=== PATIENT | female | born 1985 | race Caucasian/White ===

== ENCOUNTER → 2018-03-10 | Outpatient (CLI) | payer OTHER ==
[~2018-03-10] MED LIST: FERR1TAB23; PRENTAB26 PO
== END | disposition home or self-care (01) ==
LOC: C.LABSPEC 11:15
PROVIDERS: ATTEND Obstetrics & Gynecology
DX: Z34.81 Encounter for supervision of other normal pregnancy, first trimester (principal); Z3A.00 Weeks of gestation of pregnancy not specified

== ENCOUNTER → 2018-03-17 | Outpatient (CLI) | payer OTHER ==
[2018-03-17 12:23] LABS: BASO % 0.3 %; BASO ABS # 0.03 K/uL (0-0.2); EOS % 2.5 %; EOS ABS # 0.23 K/uL (0-0.5); HEMATOCRIT 37.7 % (37-47); HEMOGLOBIN 12.4 g/dL (12.0-16.0); IG# 0.02 K/uL (0.00-0.02); LYMPH % 28.1 %; LYMPH ABS # 2.57 K/uL (1.2-3.4); MEAN CELL VOLUME 79.4 fL (80-100); MEAN CORPUSCULAR HEMOGLOBIN 26.1 pg (25-34); MEAN CORPUSCULAR HGB CONC 32.9 g/dl (32-36); MEAN PLATELET VOLUME 9.4 fL (7.4-10.4); MONO % 9.1 %; MONO ABS # 0.83 K/uL (0.11-0.59); NEUT % 59.8 %; NEUT ABS # 5.47 K/uL (1.4-6.5); PLATELET COUNT 266 K/uL (130-400); RED CELL DISTRIBUTION WIDTH CV 13.5 % (11.5-14.5); RED CELL DISTRIBUTION WIDTH SD 38.7 fL (36.4-46.3); WHITE BLOOD COUNT 9.15 K/uL (4.8-10.8)
== END | disposition home or self-care (01) ==
LOC: C.LAB1850 10:30
PROVIDERS: ATTEND Obstetrics & Gynecology
DX: Z34.81 Encounter for supervision of other normal pregnancy, first trimester (principal); Z3A.00 Weeks of gestation of pregnancy not specified

== ENCOUNTER 2019-06-16 17:01 | Observation (INO) ==
[2019-06-16 17:40] LABS: Basophils # (auto) 0.02 K/uL (0-0.2); Basophils % (auto) 0.2 %; Eosinophils # (auto) 0.16 K/uL (0-0.5); Eosinophils % (auto) 1.5 %; Hematocrit (blood only) 38.7 % (37-47); Hemoglobin 12.7 g/dL (12.0-16.0); Immature Granulocytes # (auto) 0.01 K/uL (0.00-0.02); Immature Granulocytes % (auto) 0.1 %; Lymphocytes # (auto) 2.36 K/uL (1.2-3.4); Lymphocytes % (auto) 21.9 %; Mean Corpuscular Hgb Conc 32.8 g/dL (32-36); Mean Platelet Volume 9.7 fL (7.4-10.4); Monocytes # (auto) 0.63 K/uL (0.11-0.59); Monocytes % (auto) 5.8 %; Neutrophils # (auto) 7.59 K/uL (1.4-6.5); Neutrophils % (auto) 70.5 %; Platelet Count 252 K/uL (130-400); RDW Coefficient of Variation 12.8 % (11.5-14.5); RDW Standard Deviation 37.9 fL (36.4-46.3); Red Blood Count 4.78 M/uL (4.2-5.4); White Blood Count 10.77 K/uL (4.8-10.8)
[2019-06-16] MEDS ORDERED: ONDANSETRON INJ 2 MG/ML 2 ML VIAL IV STA (17:45)
[2019-06-16] MEDS ORDERED: KETOROLAC TROMETHAMINE 15 MG/ML VIAL IV ONE (17:45)
[2019-06-16] MEDS ORDERED: LACTATED RINGER'S 1,000 ML IV ONE (17:50)
[2019-06-16 17:52] LABS: Appearance Urine Clear (Clear); Bilirubin Urine Negative (Negative); Blood Urine Negative (Negative); Color Urine Yellow; Glucose Urine UA Negative (Negative); Ketones Urine Negative (Negative); Leukocyte Esterase Urine Negative (Negative); Nitrite Urine Negative (Negative); Protein Urine Negative (Negative); Specific Gravity Urine 1.013 (1.000-1.030); Urobilinogen Urine Negative (Negative)
[2019-06-16 17:55] LABS: Albumin Level 3.8 gm/dl (3.4-5.0); BUN Creatinine Ratio 12.9 (10-20); Calcium 9.2 mg/dl (8.5-10.1); Creatinine Clr Calc Pharmacy 84.2 ml/min; Est GFR (African American) 102.9; Est GFR (Non-African American) 88.8; Potassium 3.6 mmol/L (3.5-5.1)
[2019-06-16 17:58] LABS: Bilirubin,Total 0.2 mg/dl (0.2-1); Globulin 3.9 gm/dl (2.5-4.0); Total Protein 7.7 gm/dl (6.4-8.2)
--- NOTE | 2019-06-16 18:38 | Ultrasound Report ---
ABDOMINAL ULTRASOUND, RIGHT UPPER QUADRANT HISTORY: severe RUQ pain worsened w/ meals. COMPARISON: None. FINDINGS: Pancreas: The pancreas demonstrates a normal echotexture. Liver: Unremarkable. Gallbladder: A few gallstones including a 1.7 cm nonmobile stone at the neck. This is concerning for an impacted gallstone. The gallbladder wall is thickened and edematous measuring up to 6 mm. There ma y be trace pericholecystic fluid. CBD: 2 mm. Right kidney: No hydronephrosis. IMPRESSION: Cholelithiasis with gallbladder wall thickening/edema and trace pericholecystic fluid. There appears to be a 1.7 cm gallstone impacted at the neck of the gallbladder. Therefore, these findings are consi stent with acute cholecystitis. Electronically signed by: Jeff Vazquez M.D. 06/16/2019 6:36 PM
--- NOTE | 2019-06-16 19:03 | Emergency Department Note ---
ED Visit Note I contributed to the care of this patient under the supervision of . Resident Activity Tracking Resident Involvement: Resident Care Provided Care Provided: Adult ED
[2019-06-16] MEDS ORDERED: BUPIVACAINE/EPINEPHRINE 0.5% MPF 1:200,000 30 ML VIAL ONE (19:11)
--- NOTE | 2019-06-16 19:16 | History & Physical Report ---
Date of Service June 16, 2019 Assessment & Plan (1) Acute cholecystitis due to biliary calculus: US shows stone in neck with pericholecystic fluid c/w acute cholecystitis discussed options. discussed risk of surgery ( bleeding/infection/dvt/pe/mi/cva/bile leaks/injury to other organs etc...) questions answered will proceed with lap cintia tonight History of Present Illness Primary Care Provider: Elissa Luis pt with intermittent RUQ pain and nausea attacks since January. becoming more frequent. has had severe pain since 2 am. Allergies Allergy/AdvReac Type Severity Reaction Status Date / Time No Known Drug Allergies Allergy Unknown . 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 Required: No Beliefs That Will Affect Care: None marital status: Current Living Situation: Spouse Feels Safe at Home: Yes Smoking Status: Never smoker Hx Alcohol Use: No Hx Substance Use: No Review of Systems All systems reviewed & are unremarkable except as noted in HPI & below Physical Exam Constitutional: WD/WN, vitals as above no acute distress and not ill appearing Eyes: PERRL, conjunctivae normal, anicteric sclerae EOM intact bilaterally ENMT: external ear and nose normal, oropharynx normal Ears: no hearing impairment Neck: trachea midline, no thyromegaly Respiratory: normal respiratory effort; no respiratory distress and does not use accessory muscles Cardiovascular: Rate/Rhythm: regular rate and regular rhythm Gastrointestinal (Abdomen): soft. +RUQ ttp. + guarding Skin: no rashes, warm and dry Psychiatric: Orientation: alert, oriented x 3 and cooperative Results & Data Vital Signs (Past 12 Hours) Vital Signs Temp Pulse Pulse Resp BP BP Pulse Ox 06/16/19 19:11 62 18 116/79 100 06/16/19 18:02 99 06/16/19 17:05 36.7 C 76 20 143/94 H 100
--- NOTE | 2019-06-16 19:56 | Anesthesiology Consultation ---
Date of Service June 16, 2019 Assessment & Plan Chart Review Chart Review: Acceptable Risk for Surgery Consults Requested none History Surgery Operation Date: 06/16/19 19:30 Proposed Procedures p Laparoscopic Cholecystectomy - Dick Everett DO Height/Weight Height: 5 ft 2 in Weight: 68.2 kg Allergies Allergy/AdvReac Type Severity Reaction Status Date / Time No Known Drug Allergies Allergy Unknown . 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 Palpitations DURING ; wore holter monitor and wnl Anxiety Depression Migraines Past Family History Family History Other No history of previous surgery No known health problems Past Surgical History Surgical History H/O dilation and curettage 2014 History of colposcopy Social History Smoking Status: Never smoker Hx Alcohol Use: No Hx Substance Use: No Physical Exam Vital Signs Last Vital Signs Temp 36.7 C 06/16/19 17:05 Pulse 62 06/16/19 19:11 Resp 18 06/16/19 19:11 BP 116/79 06/16/19 19:11 Pulse Ox 100 06/16/19 19:11 Testing Laboratory Results 06/16/19 17:25 06/16/19 17:25 Urine Color Yellow 06/16/19 17:25 Urine Appearance Clear (Clear) 06/16/19 17:25 Urine pH 8.0 (4.5-7.5) H 06/16/19 17:25 Ur Specific [place] 1.013 (1.000-1.030) 06/16/19 17:25 Urine Protein Negative (Negative) 06/16/19 17:25 Urine Glucose (UA) Negative (Negative) 06/16/19 17:25 Urine Ketones Negative (Negative) 06/16/19 17:25 Urine Nitrite Negative (Negative) 06/16/19 17:25 Ur Leukocyte Esterase Negative (Negative) 06/16/19 17:25 06/16/19 17:25 POC Ur Test NEG
[2019-06-16] MEDS ORDERED: METOCLOPRAMIDE HCL INJ 5 MG/ML 2 ML VIAL IV PRN (19:58)
[2019-06-16] MEDS ORDERED: HYDROmorphone INJ 2 MG/ML SYR/VIAL IV PRN (19:58)
[2019-06-16] MEDS ORDERED: PROMETHAZINE HCL 12.5 MG in SODIUM CHLORIDE 0.9% 50 ML IV PRN (19:58)
[2019-06-16] MEDS ORDERED: ePHEDrine sulfate 50 MG/ML AMP IV PRN (19:58)
[2019-06-16] MEDS ORDERED: ATROPINE SULFATE 0.1 MG/ML 10ML SYR IV PRN (19:58)
[2019-06-16] MEDS ORDERED: ONDANSETRON INJ 2 MG/ML 2 ML VIAL IV PRN ×2 (19:58→22:24)
[2019-06-16] MEDS ORDERED: fentaNYL citrate 100 MCG/2 ML VIAL IV PRN (19:58)
[2019-06-16] MEDS ORDERED: DEXAMETHASONE SOD INJ 4 MG/ML VIAL IV PRN (19:58)
--- NOTE | 2019-06-16 20:12 | Emergency Department Note ---
Entered by Loli Grace acting as a scribe for History of Present Illness General Chief complaint: Abdominal Pain Stated complaint: SEVERE STOMACH PAIN Time Seen by Provider: 06/16/19 17:09 Source: patient History of Present Illness Onset (ago): month(s) 5 Location: abdomen Radiation: back Pain Consistency: + other (worsening) Maximum Pain Intensity: 7 Current Pain Intensity: 9 Exacerbated By: + eating Associated symptoms: + denies other symptoms (hematemesis, black vomit, hematochezia, melena), + diaphoresis, + fever/chills (Positive chills. Negative fever.), + nausea/vomiting and + other (diarrhea); no chest pain and no shortness of breath The patient is a 33 year old female who presents to the Emergency Room with complaints of worsening abdominal pains starting 5 months ago. The patient states that for the past few months it has been intermittent and is all over her abdomen. She reports that it usually lasts a few minutes to a few hours. She notes that it tends to be worse with food, specifically fatty, greasy, or spicy food. She states that recently the episodes have been increasing in intensity, frequency, and duration. She reports that she saw her PCP yesterday for it and they ordered blood work, which she hasnt gotten the results for yet. She states that she decided to come to the ED tonight as her pain was the worst it has ever been and she couldnt take it. She reports that it was a 9/10 in severity and was close to child . She reports that it felt like the pain radiated to her back. The patient complains of nausea, vomiting, diarrhea, diaphoresis, and chills stating last night. The patient notes her vomit is yellow. The patient denies hematemesis, black vomit, hematochezia, melena, fever, chest pain, and shortness of breath. Home Medications Home Medications Medication Instructions Recorded Confirmed Type [id number] fumarate-FA 1 tab PO QAM 06/16/19 06/16/19 History [] sertraline 50 mg PO QAM 06/16/19 06/16/19 History Allergies Allergy/AdvReac Type Severity Reaction Status Date / Time No Known Drug Allergies Allergy Unknown . 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 Palpitations DURING ; wore holter monitor and wnl Anxiety Depression Migraines Surgical History H/O dilation and curettage 2014 History of colposcopy Family History Other No history of previous surgery No known health problems Social History Preferred Language: Belarusian Communication Ability: Effective E Commerce Developer Required: No Beliefs That Will Affect Care: None marital status: Current Living Situation: Spouse current occupational status: employed Feels Safe at Home: Yes Smoking Status: Never smoker Hx Alcohol Use: No Hx Substance Use: No Review of Systems See HPI for pertinent positives & negatives. and A total of 10 systems reviewed and were otherwise negative Physical Exam Vital Signs Vital Signs - 24 hr 06/16/19 17:05 06/16/19 18:02 06/16/19 19:11 Temperature 36.7 C Temperature Source Oral Sepsis Recent Fever Within 48 Hours No Sepsis Action Taken by Nursing No Action Required Pulse Rate 76 Pulse Rate [Finger] 62 Respiratory Rate 20 18 Respiratory Effort / Characteristics Non-Labored Spontaneous Respiratory Depth Normal Respiratory Pattern Regular Blood Pressure 143/94 H Blood Pressure [Right Arm] 116/79 Blood Pressure Mean 110 Blood Pressure Mean [Right Arm] 91 Pulse Oximetry 100 99 100 Oxygen Delivery Method Room Air Room Air Room Air 06/16/19 19:23 Temperature Temperature Source Sepsis Recent Fever Within 48 Hours Sepsis Action Taken by Nursing Pulse Rate Pulse Rate [Finger] Respiratory Rate Respiratory Effort / Characteristics Respiratory Depth Respiratory Pattern Blood Pressure Blood Pressure [Right Arm] Blood Pressure Mean Blood Pressure Mean [Right Arm] Pulse Oximetry Oxygen Delivery Method Room Air General: Uncomfortable appearing young female complaining of abdominal pain. HEENT: Normal cephalic atraumatic. Pupils are equal round and reactive to light. Extraocular movements are intact. Oropharynx is pink with moist mucous membranes. No swelling of the mouth lips or tongue. Neck: Supple with a midline trachea. No meningeal signs or stiffness, no JVD or bruits. No Stridor. Chest: Clear to auscultation bilaterally. No wheezes or rhonchi. No increased work of breathing. Heart: regular rate and rhythm. Abdomen: Soft, moderate tenderness in right upper abdomen, nondistended without rebound guarding or rigidity. Extremities: No cyanosis clubbing or edema. No calf tenderness or asymmetry Spine/Back. Non tender to palpation. No CVA tenderness Skin: Good turgor without rashes. Neurologic exam: Cranial nerves two through 12 are intact. Motor and sensation are intact and symmetrical throughout. Course 1725: The resident, Loc Grissom, saw the patient initially at this time and preformed his initial history and physical exam. 174: Past medical records reviewed. The patient was evaluated in room B8. A complete history and physical exam was performed. 184: Upon reevaluation, the patient is doing well. I discussed findings and results with her. She verbalized agreement of the treatment plan. 185: I discussed the patient's case with Dr. Everett- [facility]. He is going to come evaluate the patient. 192: Dr. Everett- [facility] informed me that he is going to take the patient to the OR. He will evaluate the patient for further management. Consultations Consultation #1: I discussed the patient's case with Dr. Everett- [facility]. He is going to come evaluate the patient. Time: 18:59 Consultation #2: Dr. Everett- [facility] informed me that he is going to take the patient to the OR. He will evaluate the patient for further management. Time: 19:21 Administered Medications Discontinued Medications Lactated Ringer's (Lr) 1,000 mls @ 999 mls/hr IV .Q1H1M ONE Stop: 06/16/19 18:50 Last Infusion: 06/16/19 18:59 Dose: 0 mls/hr Documented by: [id number] Admin: 06/16/19 17:59 Dose: 999 mls/hr Documented by: [id number] Ketorolac Tromethamine (Toradol) 15 mg IV NOW ONE Stop: 06/16/19 17:46 Last Admin: 06/16/19 17:59 Dose: 15 mg Documented by: [id number] Ondansetron HCl (Zofran) 4 mg IV NOW STA Stop: 06/16/19 17:46 Last Admin: 06/16/19 17:59 Dose: 4 mg Documented by: [id number] Medical Decision Making Differential Diagnosis Differential diagnoses include gallbladder disease, pancreatitis, appendicitis, electrolyte or metabolic abnormalities, , cardiac disease. Medical Records Attestation: I reviewed the patient's medical records. Home Medications Current Medication List: was personally reviewed by me Laboratory Data Attestation: I reviewed the patient's lab results. Result diagrams: 06/16/19 17:25 06/16/19 17:25 Lab Results 06/16/19 06/16/19 06/16/19 Range/Units 17:25 17:25 17:25 WBC 10.77 (4.8-10.8) K/uL RBC 4.78 (4.2-5.4) M/uL Hgb 12.7 (12.0-16.0) g/dL Hct 38.7 (37-47) % MCV 81.0 (80-100) fL MCH 26.6 (25-34) pg MCHC 32.8 (32-36) g/dL RDW Std Deviation 37.9 (36.4-46.3) fL RDW Coeff of Remi 12.8 (11.5-14.5) % Plt Count 252 (130-400) K/uL MPV 9.7 (7.4-10.4) fL Immature Gran % (Auto) 0.1 % Neut % (Auto) 70.5 % Lymph % (Auto) 21.9 % [place] % (Auto) 5.8 % Eos % (Auto) 1.5 % Baso % (Auto) 0.2 % Immature Gran # (Auto) 0.01 (0.00-0.02) K/uL Neut # (Auto) 7.59 H (1.4-6.5) K/uL Lymph # (Auto) 2.36 (1.2-3.4) K/uL [place] # (Auto) 0.63 H (0.11-0.59) K/uL Eos # (Auto) 0.16 (0-0.5) K/uL Baso # (Auto) 0.02 (0-0.2) K/uL Sodium 139 (136-145) mmol/L Potassium 3.6 (3.5-5.1) mmol/L Chloride 105 (98-107) mmol/L Carbon Dioxide 28 (21-32) mmol/L Anion Gap 6.0 (3-11) BUN 11 (7-18) mg/dl Creatinine 0.86 (0.6-1.2) mg/dl Est Cr Clr Drug Dosing 84.2 ml/min Est GFR ( Amer) 102.9 Est GFR (Non-Af Amer) 88.8 BUN/Creatinine Ratio 12.9 (10-20) Glucose 106 H (70-99) mg/dl Calcium 9.2 (8.5-10.1) mg/dl Total Bilirubin 0.2 (0.2-1) mg/dl AST 20 (15-37) U/L ALT 37 (12-78) U/L Alkaline Phosphatase 63 (45-117) U/L Total Protein 7.7 (6.4-8.2) gm/dl Albumin 3.8 (3.4-5.0) gm/dl Globulin 3.9 (2.5-4.0) gm/dl Albumin/Globulin Ratio 1.0 (0.9-2) Lipase 114 (73-393) U/L Urine Color Urine Appearance (Clear) Urine pH (4.5-7.5) Ur Specific [place] (1.000-1.030) Urine Protein (Negative) Urine Glucose (UA) (Negative) Urine Ketones (Negative) Urine Blood (Negative) Urine Nitrite (Negative) Urine Bilirubin (Negative) Urine Urobilinogen (Negative) Ur Leukocyte Esterase (Negative) POC Ur Test NEG (NEG) 06/16/19 Range/Units 17:25 WBC (4.8-10.8) K/uL RBC (4.2-5.4) M/uL Hgb (12.0-16.0) g/dL Hct (37-47) % MCV (80-100) fL MCH (25-34) pg MCHC (32-36) g/dL RDW Std Deviation (36.4-46.3) fL RDW Coeff of Remi (11.5-14.5) % Plt Count (130-400) K/uL MPV (7.4-10.4) fL Immature Gran % (Auto) % Neut % (Auto) % Lymph % (Auto) % [place] % (Auto) % Eos % (Auto) % Baso % (Auto) % Immature Gran # (Auto) (0.00-0.02) K/uL Neut # (Auto) (1.4-6.5) K/uL Lymph # (Auto) (1.2-3.4) K/uL [place] # (Auto) (0.11-0.59) K/uL Eos # (Auto) (0-0.5) K/uL Baso # (Auto) (0-0.2) K/uL Sodium (136-145) mmol/L Potassium (3.5-5.1) mmol/L Chloride (98-107) mmol/L Carbon Dioxide (21-32) mmol/L Anion Gap (3-11) BUN (7-18) mg/dl Creatinine (0.6-1.2) mg/dl Est Cr Clr Drug Dosing ml/min Est GFR ( Amer) Est GFR (Non-Af Amer) BUN/Creatinine Ratio (10-20) Glucose (70-99) mg/dl Calcium (8.5-10.1) mg/dl Total Bilirubin (0.2-1) mg/dl AST (15-37) U/L ALT (12-78) U/L Alkaline Phosphatase (45-117) U/L Total Protein (6.4-8.2) gm/dl Albumin (3.4-5.0) gm/dl Globulin (2.5-4.0) gm/dl Albumin/Globulin Ratio (0.9-2) Lipase (73-393) U/L Urine Color Yellow Urine Appearance Clear (Clear) Urine pH 8.0 H (4.5-7.5) Ur Specific [place] 1.013 (1.000-1.030) Urine Protein Negative (Negative) Urine Glucose (UA) Negative (Negative) Urine Ketones Negative (Negative) Urine Blood Negative (Negative) Urine Nitrite Negative (Negative) Urine Bilirubin Negative (Negative) Urine Urobilinogen Negative (Negative) Ur Leukocyte Esterase Negative (Negative) POC Ur Test (NEG) Imaging Data Radiologist's Impression: Radiology results as stated below per my review and the radiologist's interpretation: ABDOMINAL ULTRASOUND, RIGHT UPPER QUADRANT HISTORY: severe RUQ pain worsened w/ meals. COMPARISON: None. FINDINGS: Pancreas: The pancreas demonstrates a normal echotexture. Liver: Unremarkable. Gallbladder: A few gallstones including a 1.7 cm nonmobile stone at the neck. This is concerning for an impacted gallstone. The gallbladder wall is thickened and edematous measuring up to 6 mm. There may be trace pericholecystic fluid. CBD: 2 mm. Right kidney: No hydronephrosis. IMPRESSION: Cholelithiasis with gallbladder wall thickening/edema and trace pericholecystic fluid. There appears to be a 1.7 cm gallstone impacted at the neck of the gallbladder. Therefore, these findings are consistent with acute cholecystitis. Electronically signed by: Jeff Vazquez M.D. 06/16/2019 6:36 PM ECG Data Attestation: I personally reviewed and interpreted this ECG as follows: Indication: abdominal pain Rate (beats per minute): 65 Rhythm: normal sinus Findings: no PAC, no PVC, no ST depression, no ST elevation, no acute ischemic change and no ectopy Comparison ECG Date: no prior available Blood Pressure Blood Pressure Findings: Normal blood pressure Blood Pressure Disposition: did not require urgent referral MDM Narrative This patient comes in as described above. She has been having right upper quadrant abdominal pain off and on for quite some time and now it is significant worse. she appears uncomfortable. on my exam, she is very tender in the right upper quadrant. She has had no fever. IV access established and she was kept n.p.o. she was given 1 L IV saline bolus with lactated Ringers. She has no elevation of her white count or fever. Her liver functions are not elevated. She is not . EKG does not suggest acute coronary syndrome or arrhythmia. We did a gallbladder ultrasound and she has findings concern with acute cholecystitis with a impacted stone in the neck of 1.6 cm. In light of this, we have consulted surgery. Dr. Everett promptly came to the ER and saw the patient and is going to take her emergently to the OR for cholecystectomy and further treatment and evaluation. The patient was happy the plan and she was admitted for cholecystectomy. Impression & Plan Acute cholecystitis, Abdominal pain, RUQ, Gallstone (impacted), Nausea Discharge Plan Visit Data Chief Complaint: Abdominal Pain Stated Complaint: SEVERE STOMACH PAIN ED Provider: Curry De León ED Midlevel Provider: Loc Grissom Discharge Problem: Acute cholecystitis, Abdominal pain, RUQ, Gallstone (impacted), Nausea Patient Disposition: Being Evaluated by Surgeon Discharge Instructions Interventions: ED Discharge Assessment Last Done: 06/16/19 19:23 The scribe's documentation has been prepared under my direction and personally reviewed by me in its entirety. I confirm that the note above accurately reflects all work, treatment, procedures, and medical decision making performed by me.
[2019-06-16] MEDS ORDERED: CEFAZOLIN 2000MG 2,000 MG/15 ML SYR IV ONE (20:35)
--- NOTE | 2019-06-16 21:13 | Operative Report ---
Post Operative Report Pre & Post Diagnosis Operation Date: 06/16/19 19:30 Pre-Op Diagnosis: Acute Cholecystitis Post-Op Diagnosis: Acute Cholecystitis Procedure Operation Date: 06/16/19 19:30 Actual Procedures p Laparoscopic Cholecystectomy(Not Applicable) - Dick Everett DO Surgeon Dick Everett DO Lay Out Former n/a Estimated Blood Loss 20 Findings Consistent with Post-Op Diagnosis Specimens gallbladder Description of Procedure After informed consent was obtained the patient was taken to the operating room and placed in the supine position. After successful intubation the abdomen was sterilely prepped and draped in usual fashion. A periumbilical incision was made with an 11 blade scalpel and carried down through the soft tissue using electrocautery. The anterior rectus fascia was opened using electrocautery and 2 #0 Vicryl stay sutures were placed. The peritoneum was elevated with hemostats and incised under direct vision using Metzenbaum scissors. A finger sweep was performed and a 12 mm Milligan trocar was placed. The abdomen was insufflated to 18 mmHg. The laparoscope was inserted and the abdomen was examined in 360. No gross abnormalities were identified. A subxiphoid 5 mm port and 2 right upper quadrant 5 mm ports were placed under direct vision. The patient was placed in a reverse Trendelenburg position and slightly airplaned to the left. The gallbladder was acutely inflammed. The gallbladder was grasped and elevated superiorly and laterally. A [place] dissector was used to take down adhesions around the neck of the gallbladder. The cystic duct was identified and skeletonized. It was clipped twice proximally and once distally and transected using a laparoscopic scissor. In similar fashion the cystic artery was identified and skeletonized clipped and divided. there was a second posterior branch which was clipped and divided. The gallbladder was removed from the gallbladder fossa with electrocautery. It was placed into an Endo Catch bag. I had to enlarge the supraumbilical incision to remove the gallbladder because of a very large stone. Thorough irrigation was performed. At the end of the procedure there was adequate hemostasis and no evidence of any bile leaks. A final look around the abdomen showed no other abnormalities. The gallbladder and trochars were all removed and the abdomen was desufflated. The fascia of the camera port was closed using 0 Vicryl in a [id number] fashion. All the wounds were irrigated and closed using 4-0 Monocryl. Marcaine was injected around them for postoperative analgesia and skin glue used as a dressing. The patient was awaken extubated and transferred to recovery in stable condition. I attest to the content of the Intraoperative Record and any orders documented therein. Any exceptions are noted below.
[2019-06-16] MEDS ORDERED: fentaNYL citrate 100 MCG/2 ML VIAL ONE (21:24)
--- NOTE | 2019-06-16 22:06 | Anesthesiology Progress Note ---
Date of Service June 16, 2019 Anesthesia Post Procedure Vital Signs Vital Signs: Temp Pulse Pulse Pulse Resp BP BP 06/16/19 21:50 62 15 126/72 06/16/19 21:40 84 18 118/70 06/16/19 21:30 81 13 118/69 06/16/19 21:20 37.0 C 73 20 111/60 06/16/19 19:11 62 18 06/16/19 18:02 06/16/19 17:05 36.7 C 76 20 143/94 H BP Pulse Ox 06/16/19 21:50 98 06/16/19 21:40 100 06/16/19 21:30 100 06/16/19 21:20 100 06/16/19 19:11 116/79 100 06/16/19 18:02 99 06/16/19 17:05 100 Pain Intensity Medial Abdomen: Pain Intensity: 2 Transfer of Care Handoff Completed per policy Notes Mental Status: alert / awake / arousable and participated in evaluation Patient Amnestic to Procedure: Yes Nausea / Vomiting: adequately controlled Pain: adequately controlled Airway Patency, RR, SpO2: stable & adequate BP & HR: stable & adequate Hydration State: stable & adequate Anesthetic Complications: no major complications apparent
[2019-06-16] MEDS ORDERED: IBUPROFEN 600 MG TAB PO PRN (22:24)
[2019-06-16] MEDS ORDERED: MoRPHine SULFATE 4 MG/ML 1 ML CARP\\VIAL IV PRN (22:24)
[2019-06-16] MEDS ORDERED: MoRPHine SULFATE 2 MG/ML CARP IV PRN (22:24)
[2019-06-16] MEDS ORDERED: ACETAMINOPHEN 1,000 MG/100 ML VIAL IV PRN (22:24)
[2019-06-16] MEDS ORDERED: HYDROCODONE/ACETAMOPHEN 5/325MG TAB PO PRN ×2 (22:24)
[2019-06-17] MEDS: LACTATED RINGER'S 1,000 ML IV SCH ×2 (00:11→08:22)
[2019-06-17] MEDS ORDERED: CEFAZOLIN 1000MG 1,000 MG/7.5 ML SYR IV SCH (04:00)
[2019-06-17 07:05] VITALS: BP 123/76; PULSE 81; TEMP 98.6; O2SAT 96
[2019-06-17] MEDS ORDERED: SERTRALINE HCL 50 MG TABLET PO SCH (09:00)
--- NOTE | 2019-06-17 09:42 | Anesthesiology Progress Note ---
Date of Service June 17, 2019 Anesthesia Post Procedure Vital Signs Vital Signs: Temp Pulse Pulse Pulse Resp BP BP 06/17/19 09:25 37 C 81 16 123/76 06/17/19 07:01 37 C 81 16 123/76 06/17/19 04:00 37.0 C 76 16 123/80 06/17/19 00:20 36.8 C 76 16 115/70 06/16/19 23:20 36.9 C 64 16 113/73 06/16/19 22:57 36.5 C 57 L 16 123/73 06/16/19 22:20 37.5 C 63 14 120/78 06/16/19 22:05 63 20 115/72 06/16/19 22:00 36.8 C 59 L 20 115/74 06/16/19 21:50 62 15 126/72 06/16/19 21:40 84 18 118/70 06/16/19 21:30 81 13 118/69 06/16/19 21:20 37.0 C 73 20 111/60 06/16/19 19:11 62 18 06/16/19 18:02 06/16/19 17:05 36.7 C 76 20 143/94 H BP Pulse Ox 06/17/19 09:25 96 06/17/19 07:01 96 06/17/19 04:00 97 06/17/19 00:20 96 06/16/19 23:20 96 06/16/19 22:57 97 06/16/19 22:20 99 06/16/19 22:05 96 06/16/19 22:00 98 06/16/19 21:50 98 06/16/19 21:40 100 06/16/19 21:30 100 06/16/19 21:20 100 06/16/19 19:11 116/79 100 06/16/19 18:02 99 06/16/19 17:05 100 Pain Intensity Medial Abdomen: Pain Intensity: 2 Notes Mental Status: alert / awake / arousable and participated in evaluation Patient Amnestic to Procedure: Yes Nausea / Vomiting: adequately controlled Pain: adequately controlled Airway Patency, RR, SpO2: stable & adequate BP & HR: stable & adequate Hydration State: stable & adequate Anesthetic Complications: no major complications apparent and Pt Satisfied with anesthetic care
--- NOTE | 2019-06-17 11:11 | Surgery Progress Note ---
Date of Service June 17, 2019 Assessment & Plan (1) Acute cholecystitis: POD1 Laparoscopic cholecystectomy Tolerated regular diet Pain well controlled with oral medications Will plan for discharge to home today Subjective Patient tolerated breakfast this AM. Her pain has been managed with oral medication overnight. Physical Exam Constitutional: WD/WN, vitals as above no acute distress Gastrointestinal (Abdomen): Inspection/Auscultation: + abdominal surgical incision (clean, dry, intact with dermabond over incisions) Percussion/Palpation: abdomen soft Results & Data Vital Signs (Past 12 Hours) Vital Signs Temp Pulse Resp BP Pulse Ox 06/17/19 09:25 37 C 81 16 123/76 96 06/17/19 07:01 37 C 81 16 123/76 96 06/17/19 04:00 37.0 C 76 16 123/80 97 06/17/19 00:20 36.8 C 76 16 115/70 96 06/16/19 23:20 36.9 C 64 16 113/73 96 PG Care Time/CCT Total # of Minutes Spent Total Time Spent with Patient: Total time spent is greater than 50% in coordination of care (as documented) at patient's floor/unit and/or counseling patient:
--- NOTE | 2019-06-17 15:07 | Discharge Summary ---
PRIMARY DISCHARGE DIAGNOSIS: Acute cholecystitis. PROCEDURE PERFORMED: Laparoscopic cholecystectomy. HOSPITAL COURSE: The patient is a 33-year-old female who presented to the Emergency Department with intermittent right upper quadrant pain for several months now with severe constant pain. Her ultrasound showed cholelithiasis with wall thickening and pericholecystic fluid. There is 1.7 cm gallstone impacted in the neck of the gallbladder. She was taken to the operating room that evening for laparoscopic cholecystectomy. The procedure was well tolerated. She was transferred to the surgical floor for overnight observation. In the morning she was tolerating diet and oral analgesics. Her abdomen was soft. Incisions were dry. She was stable for discharge. DISCHARGE INSTRUCTIONS: Discharge home. Follow up with Dr. Everett in 2 weeks. DISCHARGE MEDICATIONS: [place] 1-2 tablets every 4 hours as needed. Continue vitamin and Zoloft 50 mg daily.
== END 2019-06-17 13:22 | disposition home or self-care (01) ==
LOC: ED 17:01 → 3W 19:23 → OR 19:23
DX: K80.12 Calculus of gallbladder with acute and chronic cholecystitis without obstruction; F41.8 Other specified anxiety disorders